=== PATIENT | male | born 1980 | race African-American/Black ===

== ENCOUNTER 2017-07-14 14:44 | Emergency (ER) | payer MEDICAID ==
[~2017-07-14] VITALS: Ht 185.4 cm; Wt 113.4 kg
[2017-07-14 14:50] VITALS: BP 139/87
== END 2017-07-14 15:54 | disposition home or self-care (01) ==
LOC: ER 14:47
DX: J02.9 Acute pharyngitis, unspecified (principal); L02.211 Cutaneous abscess of abdominal wall; L02.416 Cutaneous abscess of left lower limb; L02.415 Cutaneous abscess of right lower limb; Z90.89 Acquired absence of other organs
CPT/HCPCS: 99283; A4606; Z7610